=== PATIENT | female | born 1985 | race Caucasian/White ===

== ENCOUNTER 2020-01-10 21:42 | Inpatient (IN) ==
[2020-01-10] MEDS ORDERED: REGLAN PO PRN (21:48)
[2020-01-10] MEDS ORDERED: PEPCID PO PRN ×2 (21:48)
[2020-01-10] MEDS ORDERED: KEFZOL 2 GM/D5W 2 GM/50 ML IVPB IV PRN (21:48)
[2020-01-10] MEDS ORDERED: ZOFRAN IV PRN (21:48)
[2020-01-10] MEDS ORDERED: STADOL IV PRN (21:48)
[2020-01-10] MEDS ORDERED: TYLENOL PO PRN (21:48)
[2020-01-10] MEDS ORDERED: PEPCID IV PRN (21:48)
[2020-01-10] MEDS ORDERED: SODIUM CHLORIDE 0.9% INJ SCH (22:00)
[2020-01-10 22:03] LABS: URINE SOURCE VOIDED
[2020-01-10 22:28] LABS: BILIRUBIN URINE NEGATIVE (NEGATIVE); BLOOD URINE TRACE (NEGATIVE); COLOR YELLOW; GLUCOSE URINE NEGATIVE (NEGATIVE); KETONE URINE TRACE mg/dL (NEGATIVE); LEUKOCYTES URINE LARGE (NEGATIVE); NITRITE URINE NEGATIVE (NEGATIVE); PH URINE 6.5; PROTEIN URINE 100 mg/dL (NEGATIVE); SP GRAVITY URINE 1.041; TURBIDITY URINE HAZY (CLEAR); UROBILINOGEN URINE 4 mg/dL (NORMAL)
[2020-01-10 22:37] LABS: UR AMPHETAMINES QUAL NONE DETECTED (NONE DETECT); UR BARBITUATES QUAL NONE DETECTED (NONE DETECT); UR BENZODIAZEPIN QUAL NONE DETECTED (NONE DETECT); UR CANNABINOIDS QUAL NONE DETECTED (NONE DETECT); UR COCAINE QUAL NONE DETECTED (NONE DETECT); UR METHADONE QUAL NONE DETECTED (NONE DETECT); UR OPIATES QUAL NONE DETECTED (NONE DETECT); UR OXYCODONE QUAL NONE DETECTED (NONE DETECT); UR PCP QUAL NONE DETECTED (NONE DETECT)
[2020-01-11] MEDS: LR 1,000 ML IV SCH ×2 (00:55→08:22)
[2020-01-11 01:17] LABS: BASO# 0.03 X1000 (0.0-0.2); BASO% 0.2 % (0.0-0.8); EOS# 0.27 X1000 (0.0-0.7); EOS% 1.6 % (0.0-10.0); HEMOGLOBIN 10.6 g/dL (12.0-16.0); IMM GRAN# 0.08 X1000 (0.0-0.04); IMM GRAN% 0.5 % (0.0-0.5); LYMPH# 1.83 X1000 (1.2-3.4); LYMPH% 10.9 % (20.5-51.1); MCHC 32.1 g/dL (33-37); MCV 87.1 FL (81-99); MONO# 0.95 X1000 (0.11-0.59); MONO% 5.7 % (1.7-9.3); NEUT# 13.63 X1000 (1.4-6.5); NEUT% 81.1 % (42.2-75.2); PLT 255 X1000 (130-400); RBC 3.79 XMIL (4.2-5.4); RDW 14.9 % (11.5-14.5); WBC 16.79 X1000 (4.8-10.8)
[2020-01-11] MEDS ORDERED: PITOCIN 30 UNITS/NS 30 UNIT/500 ML IV.SOLN IV SCH (04:00)
[2020-01-11] MEDS ORDERED: FENTANYL-BUPIV-NS 500 MCG-0.125% 250 ML EPIDURAL PRN (06:44)
[2020-01-11] MEDS ORDERED: NAROPIN 0.2% INJ ONE (07:00)
[2020-01-11] MEDS ORDERED: MINERAL OIL TOP PRN (07:18)
[2020-01-11] MEDS ORDERED: XYLOCAINE-MPF 1% INJ PRN ×2 (07:18→10:47)
--- NOTE | 2020-01-11 08:24 | OB/GYN PROGRESS NOTE ---
- Subjective 34yo at 39w4d EIOL with RNI, Abnormal quad screen., failed 1hr/passed 3 hr, mildly elevated BP Patient seen and examined. Pain controlled. She is s/p epidural and is feeling comfortable. AROM performed at 0815, fluid clear with small amount blood tinged. Head well applied to cervix. She denies any headaches, vision changes, chest pain, SOB, RUQ pain. FHT: 120/moderate/+accel/no decel [place]: Q2-3 minutes OB Physical Exam - CONSTITUTIONAL General Appearance: appears well, alert, no apparent distress - HEAD, EARS, NOSE, MOUTH & THROAT HENMT: normocephalic/atraumatic - RESPIRATORY Respiratory: no respiratory distress - CARDIOVASCULAR Cardiovascular: regular rate, rhythm - GASTROINTESTINAL (ABDOMEN) Abdominal Exam: non tender, soft - GENITOURINARY Vaginal Exam: /-2 - MUSCULOSKELETAL Extremity: normal range of motion, non-tender DTR: knee (R): 2+, knee (L): 2+ - NEUROLOGIC Neurologic: grossly normal - PSYCHIATRIC Psych/Mental Status: normal mood/affect Active Medications Generic Name Dose Route Start Last Admin Trade Name Freq PRN Reason Stop Dose Admin Acetaminophen 650 mg 01/10/20 21:48 Tylenol PO Q4-6H PRN PRN Headache Butorphanol Tartrate 2 mg 01/10/20 21:48 Stadol IV PRN PRN Pain Famotidine 40 mg 01/10/20 21:48 Pepcid PO Q12H PRN PRN GI upset or indigestion Famotidine 20 mg 01/10/20 21:48 Pepcid IV Q12H PRN PRN GI upset or indigestion Famotidine 20 mg 01/10/20 21:48 Pepcid PO ONCE PRN PRN section Lactated Ringer's 1,000 mls @ 0 mls/hr 01/10/20 22:00 01/11/20 00:55 Lr IV 125 mls/hr .Q0M RENAN Administration As Directed Oxytocin/Sodium Chloride 30 unit in 500 mls @ 0 mls/hr 01/11/20 04:00 01/11/20 04:05 Pitocin 30 Units/Ns IV 2 mls/hr .Q0M RENAN Administration As Directed Cefazolin Sodium/Dextrose 2 gm in 50 mls @ 50 mls/hr 01/10/20 21:48 Kefzol 2 Gm/D5w IV ONCE PRN PRN section Fentanyl/Bupivacaine/Sodium Chlor 250 mls @ 0 mls/hr 01/11/20 06:44 01/11/20 08:00 Cmhxpsdx-Zmijx-Dk 500 Mcg-0.125% EPIDURAL 12 mls/hr .Q0M PRN Administration As Directed Lidocaine HCl 30 ml 01/11/20 07:18 Xylocaine-Mpf 1% INJ PRN PRN vaginal repair Metoclopramide HCl 10 mg 01/10/20 21:48 Reglan PO ONCE PRN PRN section Mineral Oil 30 ml 01/11/20 07:18 Mineral Oil TOP PRN PRN lubrication Ondansetron HCl 4 mg 01/10/20 21:48 Zofran IV PRN PRN Nausea Sodium Chloride 5 - 10 ml 01/10/20 22:00 Sodium Chloride 0.9% INJ DIRECTED [facility] Laboratory Results - last 24 hr 01/10/20 01/10/20 01/11/20 21:56 21:56 00:55 WBC RBC Hgb Hct MCV MCH MCHC RDW Std Deviation Plt Count MPV Immature Gran % (Auto) Neut % (Auto) Lymph % (Auto) [place] % (Auto) Eos % (Auto) Baso % (Auto) Immature Gran # (Auto) Neut # (Auto) Lymph # (Auto) [place] # (Auto) Eos # (Auto) Baso # (Auto) Urine Source VOIDED Urine Color YELLOW Urine Turbidity HAZY Urine pH 6.5 Ur Specific [place] 1.041 Urine Protein 100 A Ur Glucose (Stick) NEGATIVE Ur Ketones (Stick) TRACE A Urine Blood TRACE A Urine Nitrite NEGATIVE Urine Bilirubin NEGATIVE Urobilinogen Dipstick 4 A Urine Leukocytes LARGE A Urine Opiates Screen NONE DETECTED Ur Oxycodone Screen NONE DETECTED Ur Methadone, Qual NONE DETECTED Ur Barbiturates Screen NONE DETECTED Ur Phencyclidine Scrn NONE DETECTED Ur Amphetamines Screen NONE DETECTED U Benzodiazepines Scrn NONE DETECTED Urine Cocaine Screen NONE DETECTED U Cannabinoids Screen NONE DETECTED RPR NON-REACTIVE Blood Type Antibody Screen 01/11/20 01/11/20 00:55 00:55 WBC 16.79 H RBC 3.79 L Hgb 10.6 L Hct 33.0 L MCV 87.1 MCH 28.0 MCHC 32.1 L RDW Std Deviation 14.9 H Plt Count 255 MPV 11.0 H Immature Gran % (Auto) 0.5 Neut % (Auto) 81.1 H Lymph % (Auto) 10.9 L [place] % (Auto) 5.7 Eos % (Auto) 1.6 Baso % (Auto) 0.2 Immature Gran # (Auto) 0.08 H Neut # (Auto) 13.63 H Lymph # (Auto) 1.83 [place] # (Auto) 0.95 H Eos # (Auto) 0.27 Baso # (Auto) 0.03 Urine Source Urine Color Urine Turbidity Urine pH Ur Specific [place] Urine Protein Ur Glucose (Stick) Ur Ketones (Stick) Urine Blood Urine Nitrite Urine Bilirubin Urobilinogen Dipstick Urine Leukocytes Urine Opiates Screen Ur Oxycodone Screen Ur Methadone, Qual Ur Barbiturates Screen Ur Phencyclidine Scrn Ur Amphetamines Screen U Benzodiazepines Scrn Urine Cocaine Screen U Cannabinoids Screen RPR Blood Type A POSITIVE Antibody Screen NEGATIVE OB Assessment & Plan (1) Normal in third trimester Status: Acute Plan: 34 yo at 39w4d EIOL with RNI, failed 1hr/passed 3 hr, abnormal quad, mildly elevated BP 1. Continue Pitocin induction, MF status stable 2. s/p AROM at 0815 3. s/p epidural 4. Continue to closely monitor BP 5. Anticipate vaginal delivery
--- NOTE | 2020-01-11 08:26 | HISTORY AND PHYSICAL ---
ADMITTING PHYSICIAN: Jared Dove DO. CHIEF COMPLAINT: Here for induction. HISTORY OF PRESENT ILLNESS: A 34-year-old, G 3, P 2-0-0-2, at 39 weeks and 4 days, who presents for an elective induction of labor. She has received care throughout . has been complicated by a rubella nonimmune status, she failed her 1 hour but passed the 3 hour glucose tolerance test, and had an abnormal quad screen. She was referred to maternal medicine for an abnormal quad and she had normal cell free DNA testing, and a normal anatomy ultrasound. Upon arrival, she was feeling intermittent contractions. She denies any vaginal bleeding or leaking fluid. She endorses movement. Blood pressures have been mildly elevated. Preeclampsia laboratory data showed a protein-creatinine ratio of 0.4. She denies any signs or symptoms of preeclampsia, vision changes, headache, chest pain, shortness of breath, or right upper quadrant pain. Her GBS testing in the third trimester was negative. OBSTETRIC HISTORY: G 1, spontaneous vaginal delivery at 40 weeks, male, 7 pounds 14 ounces, denies complications (April 2011). G 2, spontaneous vaginal delivery at 40 weeks, male, 7 pounds 1 ounce (February 2016), denies complications. G 3, current , estimated due date 01/14/2020. GYNECOLOGIC HISTORY: She denies any history of sexually transmitted infections. She had a Pap smear in June 2019 that was negative. Menarche was at age 14. PAST MEDICAL HISTORY: Denies. MEDICATIONS: vitamin p.o. daily. ALLERGIES: No known drug allergies. SURGICAL HISTORY: Denies. SOCIAL HISTORY: Former smoker. She denies alcohol or drug use. FAMILY HISTORY: Grandmother had a myocardial infarction. VITAL SIGNS: Temperature 97 degrees, blood pressure 128/85, pulse 97, respiratory rate 18. HEART TRACIN/moderate/+accelerations/no decelerations TOCOMETRY: q2-3 minutes LABORATORY DATA: White blood cell count 16.7, hemoglobin 10.6, hematocrit 33, platelets 255,000. Urinary drug screen negative. RPR nonreactive. AST 10, ALT 5. Creatinine 0.5, uric acid 5.1, protein-creatinine ratio 0.4. Blood type A positive with negative antibody screen. GBS negative. PHYSICAL EXAMINATION: GENERAL: Appears well, alert, in no acute distress. CARDIOVASCULAR: Regular rate and rhythm. RESPIRATORY: No respiratory distress. Lungs clear to auscultation. ABDOMEN: Soft, gravid, nontender. EXTREMITIES: Normal range of motion. Nontender. There are 2+ DTR at bilateral patellae. PELVIC: Sterile vaginal exam, 3.5, 70, -2 per registered nurse. Vertex presentation on ultrasound. Estimated weight 3500 g. ASSESSMENT AND PLAN: A 34-year-old, 3, para 2-0-0-2, at 39 weeks and 4 days, here for an elective induction of labor, with abnormal quad screen, rubella nonimmune status, failed 1 hour but passed her 3 hour, and mildly elevated blood pressures. 1. We will admit to labor and delivery, MF status stable 2. We will monitor blood pressure closely and patient for signs or symptoms of preeclampsia with severe features. 3. We will initiate induction with Pitocin intravenously, patient may have epidural when she desires. 4. Estimated weight 3500 g, anticipate vaginal delivery. 5. Discussed induction of labor and risk of intolerance of labor and risks of section. She desires to proceed. [facility]
[2020-01-11] MEDS ORDERED: MINERAL OIL PO PRN (10:47)
[2020-01-11] MEDS ORDERED: CYTOTEC PO PRN (10:47)
[2020-01-11] MEDS ORDERED: ATARAX PO PRN (10:47)
[2020-01-11] MEDS ORDERED: BOOSTRIX VACCINE IM ONE (10:47)
[2020-01-11] MEDS ORDERED: BENADRYL IV PRN (10:47)
[2020-01-11] MEDS ORDERED: PERCOCET-5 PO PRN (10:47)
[2020-01-11] MEDS ORDERED: BENADRYL PO PRN (10:47)
[2020-01-11] MEDS ORDERED: HYDROXYZINE IM PRN (10:47)
[2020-01-11] MEDS ORDERED: PERCOCET-10 PO PRN (10:47)
[2020-01-11] MEDS ORDERED: AMBIEN PO PRN (10:47)
[2020-01-11] MEDS ORDERED: PITOCIN IM PRN (10:47)
[2020-01-11] MEDS ORDERED: M-M-R II VACCINE SUBQ ONE (10:47)
[2020-01-11] MEDS ORDERED: PITOCIN 20 UNITS/NS 20 UNITS/1,000 ML IV.SOLN IV SCH (11:00)
[2020-01-11] MEDS: PITOCIN 30 UNITS/NS 30 UNIT/500 ML IV.SOLN IV SCH ×3 (11:11→19:16)
--- NOTE | 2020-01-11 12:00 | OPERATIVE NOTE ---
PROCEDURE DATE: 01/11/2020 PROCEDURE: Spontaneous vaginal delivery. PROCEDURE NOTE: A 34-year-old 3, para 2-0-0-2, at 39 weeks and 4 days, presented for elective induction of labor. Labor was induced with Pitocin, and AROM was performed at 8:15 a.m. The patient progressed to complete and underwent a spontaneous vaginal delivery of a vigorous viable female with scores of 9 and 10 and weight of 6 pounds 11 ounces. Labor was uncomplicated. delivered in DIANA presentation, and head, shoulders, and body were delivered with maternal pushing effort. Placenta delivered spontaneously with 3-vessel cord. A small first- degree midline perineal laceration was noted and was repaired with 2-0 Vicryl in a [id number] fashion. This was noted to be hemostatic. Anesthesia was an epidural. Estimated blood loss was 300 mL. Pediatric nurses in attendance. Mother stable in the recovery room. [facility]
[2020-01-11] MEDS: MOTRIN PO PRN ×2 (13:27→21:16)
[2020-01-11] MEDS: PERI MEDS (DERMOPLAST/NUPERCAINAL/TUCKS) MISC PRN (13:28)
[2020-01-11] MEDS: PERICOLACE PO SCH (21:16)
[2020-01-12] MEDS: PITOCIN 30 UNITS/NS 30 UNIT/500 ML IV.SOLN IV SCH (00:11)
[2020-01-12 05:37] LABS: BASO# 0.03 X1000 (0.0-0.2); BASO% 0.2 % (0.0-0.8); EOS# 0.23 X1000 (0.0-0.7); EOS% 1.6 % (0.0-10.0); HEMATOCRIT 28.3 % (37.0-47.0); IMM GRAN# 0.06 X1000 (0.0-0.04); IMM GRAN% 0.4 % (0.0-0.5); LYMPH# 2.24 X1000 (1.2-3.4); LYMPH% 15.6 % (20.5-51.1); MCH 28.2 PG (27-31); MCHC 31.8 g/dL (33-37); MCV 88.7 FL (81-99); MONO# 0.81 X1000 (0.11-0.59); MONO% 5.7 % (1.7-9.3); NEUT# 10.95 X1000 (1.4-6.5); NEUT% 76.5 % (42.2-75.2); PLT 209 X1000 (130-400); RBC 3.19 XMIL (4.2-5.4); RDW 14.9 % (11.5-14.5); WBC 14.32 X1000 (4.8-10.8)
[2020-01-12] MEDS: MOTRIN PO PRN ×2 (09:13→18:59)
[2020-01-12] MEDS: FERROUS SULFATE PO SCH (09:14)
--- NOTE | 2020-01-12 12:05 | OB/GYN PROGRESS NOTE ---
- Subjective PP1 vssaf no cx s/nt -cce Hgb 9 fm 10.6 ambulating A PP1 routine jail in am OB Physical Exam Vital Signs - 8 hr 01/12/20 09:06 Temperature 97.7 F Pulse Rate 87 Respiratory Rate 20 Blood Pressure 130/76 O2 Sat by Pulse Oximetry 98 - CONSTITUTIONAL General Appearance: appears well Active Medications Generic Name Dose Route Start Last Admin Trade Name Freq PRN Reason Stop Dose Admin Acetaminophen 650 mg 01/10/20 21:48 Tylenol PO Q4-6H PRN PRN Headache Benzocaine 1 each 01/11/20 10:47 01/11/20 13:28 Jocelin Meds (Dermoplast/Nupercainal/Tucks) MISC 1 packet 3-4XDAY PRN PRN Administration episiotomy/hemorrhoids Diphenhydramine HCl 25 mg 01/11/20 10:47 Benadryl PO Q4H PRN PRN Itching Famotidine 40 mg 01/10/20 21:48 Pepcid PO Q12H PRN PRN GI upset or indigestion Famotidine 20 mg 01/10/20 21:48 Pepcid PO ONCE PRN PRN section Ferrous Sulfate 325 mg 01/12/20 09:00 01/12/20 09:14 Ferrous Sulfate PO 325 mg DAILY RENAN Administration Hydroxyzine HCl 50 mg 01/11/20 10:47 Atarax PO Q3-4H PRN PRN Nausea Hydroxyzine HCl 50 mg 01/11/20 10:47 Hydroxyzine IM Q3-4H PRN PRN Nausea Ibuprofen 800 mg 01/11/20 10:47 01/12/20 09:13 Motrin PO 800 mg Q8H PRN PRN Administration cramping Metoclopramide HCl 10 mg 01/10/20 21:48 Reglan PO ONCE PRN PRN section Misoprostol 800 microgm 01/11/20 10:47 Cytotec PO PRN PRN Severe bleeding Ondansetron HCl 4 mg 01/10/20 21:48 Zofran IV PRN PRN Nausea Oxycodone/Acetaminophen 1 each 01/11/20 10:47 01/11/20 19:22 Percocet-5 PO 1 each Q3-4H PRN PRN Administration Pain (1-6 on Pain Scale) Oxycodone/Acetaminophen 1 each 01/11/20 10:47 01/12/20 02:21 Percocet-10 PO 1 each Q3-4H PRN PRN Administration Pain (7-10 on Pain Scale) Oxytocin 20 unit 01/11/20 10:47 Pitocin IM PRN PRN Severe bleeding Senna/Docusate Sodium 1 each 01/11/20 21:00 01/11/20 21:16 Pericolace PO 1 each QHS RENAN Administration Zolpidem Tartrate 10 mg 01/11/20 10:47 Ambien PO HS PRN PRN Sleep Laboratory Results - last 24 hr 01/12/20 05:17 WBC 14.32 H RBC 3.19 L Hgb 9.0 L D Hct 28.3 L MCV 88.7 MCH 28.2 MCHC 31.8 L RDW Std Deviation 14.9 H Plt Count 209 MPV 11.0 H Immature Gran % (Auto) 0.4 Neut % (Auto) 76.5 H Lymph % (Auto) 15.6 L [place] % (Auto) 5.7 Eos % (Auto) 1.6 Baso % (Auto) 0.2 Immature Gran # (Auto) 0.06 H Neut # (Auto) 10.95 H Lymph # (Auto) 2.24 [place] # (Auto) 0.81 H Eos # (Auto) 0.23 Baso # (Auto) 0.03
[2020-01-12] MEDS: PERICOLACE PO SCH (20:11)
[2020-01-13] MEDS: PERI MEDS (DERMOPLAST/NUPERCAINAL/TUCKS) MISC PRN (01:34)
[2020-01-13 08:51] VITALS: BP 129/84
[2020-01-13] MEDS: MOTRIN PO PRN (09:07)
[2020-01-13] MEDS: FERROUS SULFATE PO SCH (09:07)
--- NOTE | 2020-01-13 09:29 | DISCHARGE SUMMARY ---
ADMISSION DATE: 01/10/2020 DISCHARGE DATE: HISTORY AND HOSPITAL COURSE: Nimco is a 34-year-old, 3, para 2 and now 3, who presented to Labor and Delivery at 39-1/2 weeks' gestation for elective induction of labor. She underwent induction of labor, followed by a normal spontaneous vaginal delivery. Please see separate delivery note. course was uncomplicated. day number 1, she is afebrile with stable vital signs. She is ambulating, voiding, tolerating a regular diet. Hemoglobin 9, down from 10.6. On day number 2, ambulating, voiding, tolerating regular diet. Vital signs stable, afebrile. Discharged home in stable condition. DISCHARGE INSTRUCTIONS: 1. She is to follow up in the office in 6 weeks. 2. Call the office for pain or fever greater than 100.4, abnormal vaginal bleeding. 3. Maintain pelvic rest and regular diet. 4. Continue vitamins at home. 5. A prescription for Motrin provided. 6. Sequester at home for the next 2 weeks.
== END 2020-01-13 09:55 | disposition home or self-care (01) | DRG 807 ==
LOC: LD 21:42
PROVIDERS: ADMIT Student in an Organized Health Care Education/Training Program; ATTEND Student in an Organized Health Care Education/Training Program